=== PATIENT | female | born 1970 | race Caucasian/White ===

== ENCOUNTER 2020-04-24 20:43 | Day surgery (SDC) | payer OTHER ==
[~2020-04-24] VITALS: Ht 152.4 cm; Wt 61.3 kg
--- NOTE | 2020-04-24 21:08 | NUR ---
PT SENT FROM [facility]. PT STATES "I STARTED TO HAVE A SEVERE PAIN IN THE LOWER LEFT SIDE OF MY ABD TODAY AROUND NOON". PT WENT TO [facility] AND CT SCAN SHOWED "A LARGE CYST ON HER LEFT OVARY". [facility] DECIDED THAT SHE SHOULD COME TO ER AT [facility] HAVE A SHREDDER TENDER CONSULT. MD IS BEDSIDE FOR ASSESSMENT. PT RESTING IN [facility]. IS BEDSIDE
--- NOTE | 2020-04-24 21:27 | NUR ---
PT RESTING IN [facility]. MD BEDSIDE TO UPDATE PT ON PLAN OF CARE
[2020-04-24] MEDS ORDERED: SODIUM CHLORIDE 0.9% 1,000 ML IV ONE (21:30)
[2020-04-24] MEDS ORDERED: SODIUM CHLORIDE FLUSH 10ML SYR IVF PRN (21:30)
--- NOTE | 2020-04-24 21:57 | NUR ---
REPORT TO JACKIE ANDINO.
--- NOTE | 2020-04-24 21:57 | NUR ---
REPORT RECIEVED FROM LORRAINE ANDINO
[2020-04-24] MEDS ORDERED: HYDROmorphone 1 MG/ML, 1ML INJ ONE (22:27)
[2020-04-24] MEDS ORDERED: ONDANSETRON 2MG/ML, 2ML ONE (22:27)
[2020-04-24] MEDS: ONDANSETRON 2MG/ML, 2ML IVPush PRN (22:30)
[2020-04-24] MEDS: HYDROmorphone 1 MG/ML, 1ML INJ IVPush PRN (22:30)
--- NOTE | 2020-04-24 23:34 | NUR ---
CALL TO DR. STOKES, VERBAL ORDER FOR REGULAR DIET TONIGHT. ORDER REPEATED
[2020-04-25 00:25] VITALS: BP 135/90
[2020-04-25] MEDS ORDERED: AMLO5TAB4 PO (00:50)
[2020-04-25] MEDS ORDERED: LOSA50TA14 PO (00:50)
[2020-04-25] MEDS ORDERED: CARV12.52 PO (00:50)
[2020-04-25 01:43] VITALS: BP 135/90
[2020-04-25] MEDS: HYDROmorphone 1 MG/ML, 1ML INJ IVPush PRN (04:19)
[2020-04-25] MEDS: ONDANSETRON 2MG/ML, 2ML IVPush PRN (04:19)
[2020-04-25] MEDS ORDERED: HYDROmorphone 2 MG/ML, 1ML IVPush PRN (06:10)
[2020-04-25] MEDS ORDERED: ONDANSETRON 2MG/ML, 2ML IVPush PRN ×3 (06:10→14:00)
[2020-04-25 07:20] VITALS: BP 133/81
[2020-04-25] MEDS ORDERED: FLUORESCEIN SODIUM 500 MG/5 ML ONE (11:51)
[2020-04-25] MEDS ORDERED: BUPIVACAINE/PF 0.25% ONE (11:51)
[2020-04-25] MEDS ORDERED: EPINEPHRINE 1 MG/ML, 1ML ONE (11:51)
[2020-04-25] MEDS ORDERED: CHLORHEXIDINE 15 ML UDC MM STA (11:54)
[2020-04-25] MEDS ORDERED: FENTANYL PF 100 MCG/2ML ONE ×3 (12:12→14:11)
[2020-04-25] MEDS ORDERED: MIDAZOLAM 1 MG/ML, 2ML ONE (12:13)
[2020-04-25] MEDS ORDERED: PROPOFOL 10 MG/ML, 20ML ONE (12:56)
[2020-04-25] MEDS ORDERED: ROCURONIUM 10MG/ML,5ML ONE (12:56)
[2020-04-25] MEDS ORDERED: CEFAZOLIN 1,000 MG ONE ×2 (12:56)
[2020-04-25] MEDS ORDERED: ONDANSETRON 2MG/ML, 2ML ONE (12:56)
[2020-04-25] MEDS ORDERED: DIPHENHYDRAMINE 50 MG/ML, 1ML IVPush PRN (13:00)
[2020-04-25] MEDS ORDERED: ACETAMINOPHEN 325 MG TABLET PO PRN (13:00)
[2020-04-25] MEDS ORDERED: HYDROmorphone 1 MG/ML, 1ML INJ IVPush PRN (13:00)
[2020-04-25] MEDS ORDERED: DIAZEPAM 5 MG/ML, 2ML IVPush PRN (13:00)
[2020-04-25] MEDS ORDERED: hydrALAzine 20 MG/ML, 1ML IV PRN (13:00)
[2020-04-25] MEDS ORDERED: LABETALOL 5MG/ML, 20ML IV PRN (13:00)
[2020-04-25] MEDS ORDERED: MEPERIDINE/PF 25MG/0.5ML IVPush PRN (13:00)
[2020-04-25] MEDS ORDERED: PROMETHAZINE 25 MG/ML, 1ML IVPush PRN (13:00)
[2020-04-25] MEDS ORDERED: OXYcodone 5 MG/5 ML ORAL.SOL UDC PO PRN ×2 (13:00→14:00)
[2020-04-25] MEDS ORDERED: SUGAMMADEX 200 MG/2 ML IVPush ONE (13:07)
[2020-04-25] MEDS ORDERED: ACETAMINOPHEN 650 MG/20.3 ML UDC ONE (13:42)
[2020-04-25] MEDS ORDERED: OXYcodone 5 MG/5 ML ORAL.SOL UDC ONE (13:43)
[2020-04-25] MEDS: FENTANYL PF 100 MCG/2ML IV PRN ×3 (13:45→14:10)
[2020-04-25] MEDS ORDERED: PROMETHAZINE 25 MG SUPP PR ONE (14:00)
[2020-04-25] MEDS ORDERED: LACTATED RINGERS 1,000 ML IV SCH (14:00)
[2020-04-25] MEDS ORDERED: IBUPROFEN 600 MG TABLET PO PRN (14:00)
[2020-04-25 19:04] VITALS: BP 140/87
[2020-04-25] MEDS ORDERED: PAPAVERINE 30 MG/ML, 2ML ONE (19:07)
[2020-04-25] MEDS: OXYcodone/APAP 5/325MG TABLET PO PRN ×2 (20:12→20:47)
[2020-04-25] MEDS ORDERED: OXYC1TAB14 PO (20:30)
[2020-04-25] MEDS ORDERED: PROM25SU35 PR (20:32)
[2020-04-25 20:56] VITALS: BP 127/85
== END 2020-04-25 21:00 | disposition home or self-care (01) ==
LOC: ED 21:44 → UNDOADMIN 22:31 → EDIP 22:31 → OUT 22:31 → 4NE 04-25 00:11 → EDIP 04-25 00:11 → UNDODISIN 04-25 21:00 → OUT 04-25 21:00
PROVIDERS: ATTEND Obstetrics & Gynecology
DX: N83.202 Unspecified ovarian cyst, left side (principal); N83.512 Torsion of left ovary and ovarian pedicle; N70.02 Acute oophoritis; N73.6 Female pelvic peritoneal adhesions (postinfective); I10 Essential (primary) hypertension; F41.9 Anxiety disorder, unspecified; Z20.822 Contact with and (suspected) exposure to COVID-19; Z79.899 Other long term (current) drug therapy; Z90.710 Acquired absence of both cervix and uterus; Z90.79 Acquired absence of other genital organ(s)
CPT/HCPCS: 58661; 87635; 88305; 99285; J0171; J0690; J1170; J2250; J2405; J2704; J3010; J7030; J2440